=== PATIENT | male | born 1990 | race Caucasian/White ===

== ENCOUNTER 2019-01-08 00:35 | Emergency (ER) | payer SELFPAY ==
[~2019-01-08] VITALS: Ht 177.8 cm; Wt 113.6 kg
[2019-01-08 00:38] VITALS: BP 131/72; PULSE 80; RESP 19; Ht 177.8 cm; Wt 113.6 kg
[2019-01-08] MEDS ORDERED: KETOROLAC 30 MG INJ IM STA (02:00)
--- NOTE | 2019-01-08 02:00 | ERD ---
ER Documentation Chief Complaint Chief Complaint ANKLE PAIN; DX'D WITH BROKEN ANKLE ON 01/05/19; MORE PAINFUL HPI 28-year-old male, presents to the emergency department, complaining of worsening of left ankle pain. The patient sustained a left fibular fracture on 01/05/2019 diagnosed at [facility], the patient brought the reports of the x-rays and discharge papers from the ER; he was discharged with a prescription for [place] and is requesting a refill. ROS All systems reviewed and are negative except as per history of present illness. PMhx/Soc Medical and Surgical Hx: pt denies Medical Hx Anesthesia Reaction: No Hx Neurological Disorder: No Hx Respiratory Disorders: No Hx Cardiac Disorders: No Hx Psychiatric Problems: No Hx Miscellaneous Medical Probl: No Hx Alcohol Use: No Hx Substance Use: No Hx Tobacco Use: No Smoking Status: Never smoker FmHx Family History: diabetes; No coronary disease Physical Exam Vitals Vital Signs Date Temp Pulse Resp B/P (MAP) Pulse Ox O2 O2 Flow FiO2 Time Delivery Rate 01/08/19 98.5 80 19 131/72 96 00:38 (91) Physical Exam Const: No acute distress Head: Atraumatic Eyes: Normal Conjunctiva ENT: Normal External Ears, Nose and Mouth. Neck: Full range of motion. No meningismus. Resp: Clear to auscultation bilaterally Cardio: Regular rate and rhythm, no murmurs Abd: Soft, non tender, non distended. Normal bowel sounds Skin: No petechiae or rashes Back: No midline or flank tenderness Ext: Left lower extremity: Edema and lateral malleolar ecchymosis. Distal neurovascular exam intact, 2+ pedal pulse Neur: Awake and alert Psych: Normal Mood and Affect Procedures/MDM Differential diagnosis considered include but not limited are: sprain/strain, ligament injury, fracture, dislocation, low suspicion for acute infectious process. Soft compartments, neurovascular exam grossly intact. Physical examination and clinical presentation consistent with left distal fibular fracture. During the ED course the patient received treatment with short leg posterior splint and Toradol presenting overall improvement of the symptoms. Splint evaluation: Type: Short leg posterior Location: Left lower extremity Position: good alignment in anatomical position Neurovascular intact Results and clinical impression discussed with the patient who agrees with management. The patient is stable to be treated outpatient and will be discharged home with recommendations for Ortho evaluation PATRICIA, meanwhile, ice, rest and partial immobilization. NSAIDs 3 times daily for 5 days and close monitoring. The patient was instructed to follow up with the primary care provider in the next 48h. If symptoms persist, worsen or new symptoms develop, then patient should return to the ED immediately. Instructions explained and given to patient with acknowledgment and demonstrated understanding. Disclaimer: Inadvertent spelling and grammatical errors are likely due to EHR/dictation software use and do not reflect on the overall quality of patient care. Also, please note that the electronic time recorded on this note does not necessarily reflect the actual time of the patient encounter. Departure Diagnosis: Primary Impression: Closed left fibular fracture Condition: Stable Additional Instructions: Thank you very much for allowing us to participate in your care. Your health and safety is our top priority at [facility]. The evaluation in the emergency department has been done to rule out an acute emergency, therefore, chronic conditions like malignancy or other diseases have not been evaluated; therefore, you need to follow up with a primary care provider in the next 48h. If symptoms persist, worsen or new symptoms develop, then patient should return to the ED immediately. Call your primary care doctor TOMORROW for an appointment during the next 2-4 days and bring all the information provided. Have prescriptions filled and follow precisely the directions on the label. If the symptoms get worse and your provider is unavailable, return to the Emergency Department immediately. KENNETH BASSETT MD Jan 08, 2019 02:00
[2019-01-08] MEDS ORDERED: IBUP-1561 PO (02:02)
[2019-01-08] MEDS ORDERED: ACET325T33 PO (02:02)
== END 2019-01-08 03:39 | disposition home or self-care (01) ==
LOC: FTE 00:35
DX: S82.62XA Displaced fracture of lateral malleolus of left fibula, initial encounter for closed fracture (principal); X58.XXXA Exposure to other specified factors, initial encounter; Y92.9 Unspecified place or not applicable
CPT/HCPCS: 29505; J1885; 96372